=== PATIENT | male | born 1970 | race Caucasian/White ===

== ENCOUNTER 2021-07-25 14:00 | Emergency (ER) | payer OTHER ==
[~2021-07-25 14:00] MED LIST: Iopamidol 370 76% 100 ML VIAL ONE
[2021-07-25 14:31] LABS: #Basophils 0.1 thou/uL (0.0-0.2); #Monocytes 1.1 thou/uL (0.11-0.59); #Neutrophils 13.1 thou/uL (1.40-6.50); %Basophils 0.5 % (0.0-1.0); %Lymphocytes 6.4 % (21.0-51.0); %Monocytes 7.1 % (0.0-10.0); %Neutrophils 85.9 % (42.0-75.0); Hemoglobin 14.1 g/dL (14.0-18.0); Mean Corpuscular HGB CONC 33.1 g/dL (32.0-36.0); Mean Corpuscular Hemoglobin 30.1 pg (27.0-31.0); Mean Corpuscular Volume 90.8 fL (78.0-98.0); Mean Platelet Volume 10.9 fL (7.4-10.4); Platelet Count 227 thou/uL (130-400); RBC Distribution Width 12.7 % (11.5-14.5); Red Blood Cell (RBC) Count 4.68 mill/uL (4.70-6.10); White Blood Cell (WBC) Count 15.3 thou/uL (4.8-10.8)
[2021-07-25 14:43] LABS: ALT (SGPT) 20 U/L (8-55); AST (SGOT) 14 U/L (5-34); Albumin 4.3 g/dL (3.5-5.0); Alkaline Phosphatase 68 U/L (40-110); Anion Gap 13 mmol/L (10-20); BUN (Urea Nitrogen) 16 mg/dL (8.9-20.6); Bilirubin, Total 0.8 mg/dL (0.2-1.2); Calc. Creatinine Clearance 0 mL/min (70-130); Calcium 9.5 mg/dL (7.8-10.44); Carbon Dioxide 28 mmol/L (22-29); Chloride 100 mmol/L (98-107); Globulin 3.1 g/dL (2.4-3.5); Glucose 139 mg/dL (70-105); Potassium 4.2 mmol/L (3.5-5.1); Protein, Total 7.4 g/dL (6.0-8.3); Sodium 137 mmol/L (136-145)
[2021-07-25] MEDS ORDERED: Morphine 4 MG/ML VIAL ONE (14:44)
[2021-07-25] MEDS ORDERED: Sodium Chloride 0.9% 500 ML ONE (14:44)
[2021-07-25] MEDS ORDERED: Piperacillin/Tazobactam 4.5 GM VIAL ONE (16:11)
[2021-07-25] MEDS ORDERED: Sodium Chloride 0.9% 100 ML ONE (16:11)
[2021-07-25 16:31] LABS: SARS-CoV-2 NAA Rapid Test Not Detected (NotDetected)
== END 2021-07-25 17:20 | disposition short-term general hospital (02) ==
LOC: MADERS 14:00
DX: R10.9 Unspecified abdominal pain (principal); K37 Unspecified appendicitis; Z20.822 Contact with and (suspected) exposure to COVID-19; I10 Essential (primary) hypertension; Z79.899 Other long term (current) drug therapy
CPT/HCPCS: 74177; 80053; 85025; 96365; 96375; J2270; J2543; J3490; J7030; Q9967; U0002